=== PATIENT | female | born 1955 | race Caucasian/White ===

== ENCOUNTER 2023-08-01 03:27 | Observation (INO) | payer OTHER ==
[2023-08-01 03:44] VITALS: BMI 22.4
[2023-08-01 05:14] LABS: INR 0.94 (0.83-1.09); PROTHROMBIN TIME (PATIENT) 10.9 SEC (9.7-13.0)
[2023-08-01 05:17] LABS: ACTIVATED PTT 30.1 SECONDS (25.2-36.5)
[2023-08-01 05:31] LABS: BASO % 0.5 % (0-2.0); EOS % 1.9 % (0-4.5); HEMATOCRIT 40.2 % (32.4-45.2); HEMOGLOBIN 13.2 GM/dL (10.7-15.3); LYMPH % 22.3 % (8-40); MCH 28.6 pg (25.7-33.7); MCHC 32.8 g/dl (32.0-36.0); MEAN CELL VOLUME 87.4 fl (80-96); MEAN PLT VOLUME 8.4 fl (7.5-11.1); MONO % 9.2 % (3.8-10.2); NEUT % 66.1 % (42.8-82.8); PLATELET COUNT 216 10^3/uL (134-434); RBC 4.61 M/mm3 (3.60-5.2); RDW 14.5 % (11.6-15.6); WHITE BLOOD COUNT 6.4 K/mm3 (4.0-10.0)
[2023-08-01 05:37] LABS: POTASSIUM 4.2 mmol/L (3.5-5.1)
[2023-08-01 05:39] LABS: ALBUMIN 3.7 g/dl (3.4-5.0); CALCIUM 9.6 mg/dL (8.5-10.1); MAGNESIUM 1.8 mg/dL (1.8-2.4)
[2023-08-01 05:42] LABS: CREATININE 0.9 mg/dL (0.55-1.3)
[2023-08-01 05:44] LABS: BILIRUBIN,TOTAL 0.3 mg/dL (0.2-1); TOT PROT 7.1 g/dl (6.4-8.2)
[2023-08-01 05:47] LABS: N-TERMINAL BNP 91.6 pg/ml (5-125)
[2023-08-01] MEDS ORDERED: ACETAMINOPHEN 1000 MG/100 ML BAG IVPB ONE (06:22)
[2023-08-01] MEDS ORDERED: ACETAMINOPHEN INJECTION 100 ML IVPB ONE (06:42)
[2023-08-01] MEDS ORDERED: NITROGLYCERIN 2% OINTMENT - 1GM PACKET TD ONE ×2 (07:56→08:02)
[2023-08-01] MEDS ORDERED: NITROGLYCERIN SUBLINGUAL 1/150 0.4 MG TAB SL PRN (09:03)
[2023-08-01] MEDS: INSULIN (NOVOLOG) ASPART 100 UNITS/ML 10ML VIAL SQ SCH ×3 (10:02→21:30)
[2023-08-01] MEDS ORDERED: ENOXAPARIN NA (PORCINE) 40 MG/0.4 ML DISP.SYRIN SQ ONE (10:03)
[2023-08-01] MEDS ORDERED: ASPIRIN 81 MG CHEWABLE TABLETS ONE (10:03)
[2023-08-01] MEDS: ASPIRIN 81 MG CHEWABLE TABLETS PO SCH (10:06)
[2023-08-01] MEDS: ENOXAPARIN NA (PORCINE) 40 MG/0.4 ML DISP.SYRIN SQ SCH (10:06)
[2023-08-01] MEDS: ACETAMINOPHEN 325 MG TABLET (FP) PO PRN ×2 (14:12→21:29)
[2023-08-01 18:26] VITALS: RESP 18
[2023-08-01] MEDS ORDERED: ATORVASTATIN CA 20 MG TABLET (FP) PO SCH (22:00)
[2023-08-02] MEDS: INSULIN (NOVOLOG) ASPART 100 UNITS/ML 10ML VIAL SQ SCH ×2 (06:32→12:05)
[2023-08-02 07:10] LABS: BASO % 0.8 % (0-2.0); EOS % 2.9 % (0-4.5); HEMATOCRIT 42.5 % (32.4-45.2); HEMOGLOBIN 13.9 GM/dL (10.7-15.3); LYMPH % 40.4 % (8-40); MCH 28.7 pg (25.7-33.7); MCHC 32.8 g/dl (32.0-36.0); MEAN CELL VOLUME 87.5 fl (80-96); MEAN PLT VOLUME 8.5 fl (7.5-11.1); NEUT % 45.9 % (42.8-82.8); PLATELET COUNT 223 10^3/uL (134-434); RBC 4.86 M/mm3 (3.60-5.2); RDW 14.5 % (11.6-15.6)
[2023-08-02 07:31] LABS: POTASSIUM 4.2 mmol/L (3.5-5.1)
[2023-08-02 07:38] LABS: CALCIUM 9.3 mg/dL (8.5-10.1)
[2023-08-02 07:39] LABS: ALBUMIN 3.7 g/dl (3.4-5.0); MAGNESIUM 2.1 mg/dL (1.8-2.4)
[2023-08-02 07:41] LABS: PHOSPHOROUS 3.3 mg/dL (2.5-4.9)
[2023-08-02 07:42] LABS: CREATININE 0.8 mg/dL (0.55-1.3)
[2023-08-02 07:43] LABS: BILIRUBIN,TOTAL 0.5 mg/dL (0.2-1); TOT PROT 7.3 g/dl (6.4-8.2)
[2023-08-02] MEDS: ENOXAPARIN NA (PORCINE) 40 MG/0.4 ML DISP.SYRIN SQ SCH (10:20)
[2023-08-02] MEDS: ASPIRIN 81 MG CHEWABLE TABLETS PO SCH (10:20)
[2023-08-02 14:24] VITALS: BP 128/81; PULSE 103; TEMP 98.3
== END 2023-08-02 16:21 | disposition home or self-care (01) ==
LOC: JER 03:27 → JERBED 06:23 → J4W 12:52
PROVIDERS: ADMIT Internal Medicine; ATTEND Internal Medicine
PROC: 3E033NZ Introduction of Analgesics, Hypnotics, Sedatives into Peripheral Vein, Percutaneous Approach (ICD-10-PCS; principal; 2023-08-01)
DX: R07.89 Other chest pain (principal); E78.5 Hyperlipidemia, unspecified; E11.9 Type 2 diabetes mellitus without complications; I78.0 Hereditary hemorrhagic telangiectasia; Q25.72 Congenital pulmonary arteriovenous malformation; Z87.891 Personal history of nicotine dependence; Z86.73 Personal history of transient ischemic attack (TIA), and cerebral infarction without residual deficits; K21.9 Gastro-esophageal reflux disease without esophagitis; Z88.2 Allergy status to sulfonamides
CPT/HCPCS: 0241U-QW; 36415; 71045-TC-FY; 80053; 80061; 82962; 83036; 83735; 83880; 84100; 84443; 84484; 85025; 85379; 85610; 85730; 93005; 93010; 93306-TC; 96374; 99285-25; G0378